=== PATIENT | female | born 1985 | race American Indian/Alaskan Native ===

== ENCOUNTER 2016-09-27 18:59 | Emergency (ER) | payer SELFPAY ==
[2016-09-27 22:17] VITALS: BP 120/69
[2016-09-27] MEDS ORDERED: MOTRIN PO ONE (22:54)
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
== END 2016-09-28 00:12 | disposition home or self-care (01) ==
LOC: ED 18:59
DX: M54.9 Dorsalgia, unspecified (principal); V49.9XXA Car occupant (driver) (passenger) injured in unspecified traffic accident, initial encounter; Y92.488 Other paved roadways as the place of occurrence of the external cause; Y93.89 Activity, other specified; Y99.8 Other external cause status
CPT/HCPCS: 99282

== ENCOUNTER 2016-12-14 15:20 | Emergency (ER) | payer SELFPAY ==
[2016-12-14 16:04] VITALS: BP 114/71
--- NOTE | 2016-12-14 20:18 | Emergency Department Report ---
HPI - General Chief Complaint: Earache Time Seen by Provider: 12/14/16 19:44 - HPI HPI: Patient here complaining of right ear pain 2 weeks. She started becoming much worse. She states she is also having pain to her earlobe. And it hurts to touch around her ear. She denies any drainage. Denies any fever. Reports pain started at 10 and aching. [id number] pain medication without any. Denies any nasal congestion, cough, and sore throat. Denies any shortness of breath. Denies any trauma to her ear. ED Past Medical Hx - Past Medical History Previous Medical History?: No - Surgical History Past Surgical History?: Yes Additional Surgical History: x3 - Family History Family history: no significant - Social History Smoking Status: Never Smoker Substance Use Type: None - Medications Home Medications: Home Medications Medication Instructions Recorded Confirmed Last Taken Type Amoxicillin [Amoxicillin TAB] 875 mg PO BID #20 tablet 12/14/16 Unknown Rx Ibuprofen [Motrin] 600 mg PO Q8H PRN #15 tablet 12/14/16 Unknown Rx Neomy/Polymyx B/Hc (Otic) Soln 4 drops OTIC TID #1 bottle 12/14/16 Unknown Rx [Cortisporin (Otic) Soln] ED Review of Systems ROS: Stated complaint: LEFT EAR PAIN Other details as noted in HPI Comment: All other systems reviewed and negative Constitutional: denies: chills, fever Eyes: eye discharge. denies: eye pain, vision change ENT: ear pain. denies: throat pain, dental pain, hearing loss, epistaxis, congestion Respiratory: no symptoms reported Cardiovascular: denies: chest pain, palpitations, edema, syncope Gastrointestinal: denies: abdominal pain, nausea, vomiting, constipation, hematemesis, melena, hematochezia Musculoskeletal: denies: back pain, arthralgia, myalgia Skin: denies: rash Neurological: denies: headache, weakness, numbness, paresthesias, confusion, abnormal gait, vertigo Physical Exam - Physical Exam Vital Signs: Vital Signs 12/14/16 16:01 Temperature 98.5 F Pulse Rate 85 Respiratory 17 Rate Blood Pressure 114/71 O2 Sat by Pulse 100 Oximetry General: This is a 31-year-old female well-nourished well-developed in no acute distress. Physical Exam: Head: Normocephalic atraumatic Mouth: Moist, no pharyngeal exudate or erythema. Uvula is midline and oral airway is patent. No gingival enlargement or dental tenderness. No facial swelling. No peritonsillar abscesses. Neck: Supple, no C-spine tenderness, no tracheal deviation. Nontender to palpate. no adenopathy Ears: Bilateral TMs congested with rt tm erythema and loss of bony landmarks. Rt tragus TTP. No mastoid bone tenderness, .RT EAC with redness, swelling and no drainage. RT perauriclar adenopathy Eyes: Bilateral pupils equal and reactive to light, bilateral EOM intact. Bilateral sclera and conjunctiva without injection. Normal accommodation Nose: Mucosa moist, positive congestion no erythema. Positive clear drainage. maxillary and frontal sinus non-tender to palpate. Lungs: clear to auscultate bilaterally no rhonchi wheezes or rales. Normal work of breathing extremity; No CCE. +2 pulses. No neurovascular compromise Cardiovascular: S1-S2, reg rate .regular rhythm. No murmurs. Skin: clean Dry and intact no rash no lesions Psych: Normal mood and behavior ED Course Vital Signs 12/14/16 16:01 Temperature 98.5 F Pulse Rate 85 Respiratory 17 Rate Blood Pressure 114/71 O2 Sat by Pulse 100 Oximetry - Reevaluation(s) Reevaluation #1: 12/14/16 20:28 Patient had an uneventful ED stay ED Medical Decision Making - Medical Decision Making ED course: She is here complaining of right earache 2 weeks. She was found to have otitis externa and otitis media with right otalgia. Diagnosis and treatment plan explained . given Motrin 800 mg in the emergency room. Patient discharged home with prescription for amoxicillin and Motrin along with Corticosporin solution to follow up with her primary care physician in 5 days. I instructed her she does not have a primary care she should follow up at [facility]. Critical care attestation.: If time is entered above; I have spent that time in minutes in the direct care of this critically ill patient, excluding procedure time. ED Disposition Clinical Impression: Otalgia, right ear Otitis externa of right ear Qualifiers: Otitis externa type: unspecified type Chronicity: acute Qualified Code(s): H60.501 - Unspecified acute noninfective otitis externa, right ear Otitis media of right ear Qualifiers: Otitis media type: unspecified Chronicity: unspecified Qualified Code(s): H66.91 - Otitis media, unspecified, right ear Disposition: DC-01 TO HOME OR SELFCARE Is pt being admited?: No Does the pt Need Aspirin: No Condition: Stable Instructions: Otitis Media (ED), Otitis Externa (ED), Earache (ED) Additional Instructions: Please take medication as instructed. Follow up with Primary care in 5 days as instructed Prescriptions: Amoxicillin [Amoxicillin TAB] 875 mg PO BID #20 tablet Ibuprofen [Motrin] 600 mg PO Q8H PRN #15 tablet PRN Reason: Pain Neomy/Polymyx B/Hc (Otic) Soln [Cortisporin (Otic) Soln] 4 drops OTIC TID #1 bottle Referrals: [facility] [Outside] - 12/19/16 Forms: Work/School Release Form(ED)
[2016-12-14] MEDS ORDERED: MOTRIN PO ONE (20:30)
== END 2016-12-14 20:47 | disposition home or self-care (01) ==
LOC: ED 15:20
DX: H60.501 Unspecified acute noninfective otitis externa, right ear (principal); H66.91 Otitis media, unspecified, right ear
CPT/HCPCS: 99282

== ENCOUNTER 2018-12-14 22:38 | Emergency (ER) | payer SELFPAY ==
[2018-12-14] MEDS ORDERED: CEPHULAC PO ONE (23:31)
--- NOTE | 2018-12-14 23:33 | Emergency Department Report ---
ED Abdominal Pain HPI - General Chief Complaint: Abdominal Pain Stated Complaint: STOMACH PAIN CONSTIPATION [id number] Time Seen by Provider: 12/14/18 23:24 Source: patient Mode of arrival: Ambulatory Limitations: No Limitations - History of Present Illness Initial Comments: Norma is a healthy 33-year-old female without significant past medical history who presents with diffuse abdominal pain for the past 2 weeks. She has constipation. Pain is worse when she eats. No pain at rest. However she feels discomfort when she ambulates. Enema did not provide any relief. She ate [place] food today. She denies fever. Denies vomiting. History of . History of tubal ligation. MD Complaint: abdominal pain -: Gradual, week(s) (2) Location: diffuse Severity: mild Quality: cramping Consistency: intermittent Improves With: rest Worsens With: movement Associated Symptoms: constipation - Related Data Previous Rx's Medication Instructions Recorded Last Taken Type Amoxicillin [Amoxicillin TAB] 875 mg PO BID #20 tablet 12/14/16 Unknown Rx Ibuprofen [Motrin] 600 mg PO Q8H PRN #15 tablet 12/14/16 Unknown Rx Neomy/Polymyx B/Hc (Otic) Soln 4 drops OTIC TID #1 bottle 12/14/16 Unknown Rx [Cortisporin (Otic) Soln] Magnesium Citrate [Citrate of 300 ml PO NOW #1 bottle 12/14/18 Unknown Rx Magnesia] Allergies Allergy/AdvReac Type Severity Reaction Status Date / Time No Known Allergies Allergy Verified 12/14/16 16:00 ED Review of Systems ROS: Stated complaint: STOMACH PAIN CONSTIPATION [id number] Other details as noted in HPI Comment: All other systems reviewed and negative Constitutional: denies: fever, malaise Gastrointestinal: abdominal pain ED Past Medical Hx - Past Medical History Previous Medical History?: No - Surgical History Past Surgical History?: Yes Additional Surgical History: x3 - Social History Smoking Status: Never Smoker Substance Use Type: None - Medications Home Medications: Home Medications Medication Instructions Recorded Confirmed Last Taken Type Amoxicillin [Amoxicillin TAB] 875 mg PO BID #20 tablet 12/14/16 Unknown Rx Ibuprofen [Motrin] 600 mg PO Q8H PRN #15 tablet 12/14/16 Unknown Rx Neomy/Polymyx B/Hc (Otic) Soln 4 drops OTIC TID #1 bottle 12/14/16 Unknown Rx [Cortisporin (Otic) Soln] Magnesium Citrate [Citrate of 300 ml PO NOW #1 bottle 12/14/18 Unknown Rx Magnesia] ED Physical Exam - General Limitations: No Limitations General appearance: alert, in no apparent distress - Head Head exam: Present: atraumatic, normocephalic - Eye Eye exam: Present: normal appearance - ENT ENT exam: Present: mucous membranes moist - Neck Neck exam: Present: normal inspection, full ROM - Respiratory Respiratory exam: Present: normal lung sounds bilaterally. Absent: respiratory distress, rales, rhonchi - Cardiovascular Cardiovascular Exam: Present: regular rate, normal rhythm, normal heart sounds. Absent: systolic murmur, diastolic murmur, rubs, gallop - GI/Abdominal GI/Abdominal exam: Present: soft, normal bowel sounds. Absent: distended, tenderness, guarding, rebound - Extremities Exam Extremities exam: Present: normal inspection - Back Exam Back exam: Present: normal inspection - Neurological Exam Neurological exam: Present: alert, oriented X3 - Psychiatric Psychiatric exam: Present: normal affect, normal mood - Skin Skin exam: Present: warm, dry, intact, normal color. Absent: rash ED Course Vital Signs 12/14/18 23:34 Temperature 98.5 F Pulse Rate 72 Respiratory 16 Rate Blood Pressure 107/72 [Left] O2 Sat by Pulse 100 Oximetry ED Medical Decision Making - Lab Data Result diagrams: 12/14/18 22:55 12/14/18 22:55 - Medical Decision Making Ms. Colmenares is a healthy 33 female who presents with 2 weeks of abdominal discomfort. Suspect constipation as cause. No evidence of peritonitis. No fever no leukocytosis no tenderness on exam. Prescribed magnesium citrate. First dose lactulose provided in the emergency department. Mild hypokalemia seen on lab work. Critical care attestation.: If time is entered above; I have spent that time in minutes in the direct care of this critically ill patient, excluding procedure time. ED Disposition Clinical Impression: Constipation, Abdominal pain Disposition: DC-01 TO HOME OR SELFCARE Is pt being admited?: No Does the pt Need Aspirin: No Condition: Stable Instructions: Constipation (ED), High Fiber Diet (ED), Obstipation (ED) Prescriptions: Magnesium Citrate [Citrate of Magnesia] 300 ml PO NOW #1 bottle Forms: Work/School Release Form(ED)
[2018-12-14 23:35] VITALS: BP 107/72
[2018-12-14 23:36] LABS: Basophils # (Auto) 0.1 K/mm3 (0.0-0.1); Basophils % (Auto) 0.7 % (0.0-1.8); Eosinophils # (Auto) 0.1 K/mm3 (0.0-0.4); Eosinophils % (Auto) 1.6 % (0.0-4.3); Hematocrit 34.1 % (30.3-42.9); Hemoglobin 11.4 gm/dl (10.1-14.3); Lymphocytes # (Auto) 1.6 K/mm3 (1.2-5.4); Lymphocytes % (Auto) 20.6 % (13.4-35.0); Mean Corpuscular HGB Conc 34 % (30-34); Mean Corpuscular Volume 85 fl (79-97); Monocytes # (Auto) 0.7 K/mm3 (0.0-0.8); Monocytes % (Auto) 9.3 % (0.0-7.3); Platelet Count 175 K/mm3 (140-440); Red Blood Count 4.02 M/mm3 (3.65-5.03); Red Cell Distribution Width 12.9 % (13.2-15.2)
[2018-12-14 23:49] LABS: Alanine Aminotransferase 11 units/L (7-56); Albumin 3.9 g/dL (3.9-5); BUN/Creatinine Ratio 13; Blood Urea Nitrogen 8 mg/dL (7-17); Calcium 9.1 mg/dL (8.4-10.2); Hemolysis Index 4
== END 2018-12-15 00:35 | disposition home or self-care (01) ==
LOC: ED 22:38
DX: K59.00 Constipation, unspecified (principal); R10.84 Generalized abdominal pain
CPT/HCPCS: 36415; 80053; 84703; 85025; 99283